=== PATIENT | male | born 1980 | race African-American/Black ===

== ENCOUNTER 2020-02-03 08:17 | Emergency (ER) | payer OTHER ==
[~2020-02-03] VITALS: Ht 175.3 cm; Wt 72.6 kg
[~2020-02-03 08:17] MED LIST: MEDROLPACK PO; PROAIR RESPICL90 MCG IH
[2020-02-03] MEDS ORDERED: GUAIFENESIN400 MG PO (10:32)
[2020-02-03] MEDS ORDERED: MEDROLPACK PO (10:32)
== END 2020-02-03 12:03 | disposition home or self-care (01) ==
LOC: ER 08:17
DX: J45.998 Other asthma (principal); J06.9 Acute upper respiratory infection, unspecified; Z03.818 Encounter for observation for suspected exposure to other biological agents ruled out

== ENCOUNTER 2021-05-20 20:10 | Emergency (ER) | payer OTHER ==
[~2021-05-20] VITALS: Ht 172.7 cm; Wt 77.1 kg
[~2021-05-20 20:10] MED LIST changes: +GUAIFENESIN400 MG PO
[2021-05-20] MEDS ORDERED: PROAIR RESPICL90 MCG IH (20:57)
== END 2021-05-21 05:37 | disposition home or self-care (01) ==
LOC: ER 20:10
DX: N20.0 Calculus of kidney (principal); Z20.822 Contact with and (suspected) exposure to COVID-19

== ENCOUNTER 2024-11-27 12:58 | Emergency (ER) | payer OTHER ==
[~2024-11-27] VITALS: Ht 167.6 cm; Wt 83.0 kg
[2024-11-27] MEDS ORDERED: HUMIRA SQ (13:28)
[2024-11-27] MEDS ORDERED: CETIRIZINE HCL 5MG/5ML BLIST.PACK PO ONE ×2 (14:30→14:41)
[2024-11-27] MEDS ORDERED: GUAIFENESIN 200 MG/10 ML BLIST.PACK PO ONE ×2 (14:30→14:41)
[2024-11-27] MEDS ORDERED: METHYLPREDNISOLONE SOD SUCC 125 MG VIAL IV ONE (14:30)
[2024-11-27] MEDS ORDERED: IPRATROPIUM BROMIDE 0.5 MG/2.5 ML AMPUL.NEB IH ONE ×2 (14:30→15:46)
[2024-11-27] MEDS ORDERED: ALBUTEROL SULFATE 3 ML/2.5 MG AMPUL.NEB IH ONE ×2 (14:30→15:46)
[2024-11-27] MEDS ORDERED: METHYLPREDNISOLONE SOD SUCC 125 MG VIAL ONE (14:41)
[2024-11-27 15:10] LABS: BASO % 0.9 % (0.1-1.2); EOS # 0.90 (0.04-0.54); EOS % 11.4 % (0.7-7.0); LYMPH # 2.90 (1.18-3.74); LYMPH % 36.8 % (19.3-53.1); MEAN PLATELET VOLUME 10.60 fl (9.4-12.4); MONO # 0.90 (0.24-0.82); MONO % 11.4 % (4.7-12.5); NEUT # 3.10 (1.56-6.13); NEUT % 39.2 % (34.0-71.1); RED CELL DISTRIBUTION WIDTH 13.0 % (11.6-14.4)
[2024-11-27 15:41] LABS: ALT/SGPT 57.0 U/L (12-78); AST/SGOT 16.0 U/L (15-37); BILIRUBIN TOTAL 0.43 mg/dL (0.3-1.2); BUN CREA RATIO 17.0 (7.0-25.0); CREATININE SERUM 1.05 mg/dL (0.70-1.30); GFR 76.38; GLOBULINA 3.4 G/DL (2.4-3.5); GLUCOSE FASTING 119.0 mg/dL (65-100); OSMOLALITY SERUM 288.0 MOSM/KG (275-295)
[2024-11-27 16:41] LABS: COVID-19 AG NEGATIVE (NEGATIVE)
[2024-11-27] MEDS ORDERED: ALBUTEROL1.25 MG/3 IH (17:34)
[2024-11-27] MEDS ORDERED: MUCINEX1200 MG PO (17:34)
[2024-11-27] MEDS ORDERED: SINGULAIR10 MG PO (17:34)
[2024-11-27] MEDS ORDERED: IPRAT-ALBUT 0.5-3 ML IH (17:34)
== END 2024-11-27 19:45 | disposition home or self-care (01) ==
LOC: ER 12:59
PROVIDERS: Student in an Organized Health Care Education/Training Program
DX: B34.9 Viral infection, unspecified (principal); R05.9 Cough, unspecified; Z20.822 Contact with and (suspected) exposure to COVID-19; Z91.013 Allergy to seafood